=== PATIENT | male | born 1960 | race Caucasian/White ===

== ENCOUNTER 2022-10-10 04:01 | Day surgery (SDC) | payer OTHER ==
[2022-10-08 13:52] VITALS: BMI 32.5
[2022-10-10 06:34] VITALS: RESP 18
[2022-10-10] MEDS ORDERED: PROPOFOL 20 ML ONE (07:10)
[2022-10-10] MEDS ORDERED: LIDOCAINE HCL/PF 2% SDV 5ML VIAL ONE (07:10)
[2022-10-10] MEDS ORDERED: MIDAZOLAM HCL 2 MG/2 ML SINGLE DOSE VIAL ONE ×2 (07:10→08:18)
[2022-10-10] MEDS ORDERED: LIDOCAINE HCL 1%, 10 MG/ML (20ML VIAL) ONE (07:36)
[2022-10-10] MEDS ORDERED: BUPIVACAINE HCL/PF 0.5% (5MG/ML) 10 ML VIAL ONE (08:16)
[2022-10-10] MEDS ORDERED: KETOROLAC TROMETHAMINE 30 MG/1 ML VIAL ONE (08:23)
[2022-10-10] MEDS ORDERED: ONDANSETRON 4 MG/2 ML VIAL ONE (08:23)
[2022-10-10] MEDS ORDERED: DEXAMETHASONE SOD PHOSPHATE 4 MG/1 ML VIAL ONE (08:23)
[2022-10-10] MEDS ORDERED: LACTATED RINGERS SOLUTION 1,000 ML IV SCH (09:30)
[2022-10-10 09:36] VITALS: TEMP 97.1
[2022-10-10 09:46] VITALS: BP 123/77; PULSE 74
== END 2022-10-10 10:15 | disposition home or self-care (01) ==
LOC: JASU-SURG 04:01
PROVIDERS: ATTEND Surgery
PROC: 0JBF0ZZ Excision of Left Upper Arm Subcutaneous Tissue and Fascia, Open Approach (ICD-10-PCS; principal; 2022-10-10 08:00)
DX: D21.12 Benign neoplasm of connective and other soft tissue of left upper limb, including shoulder (principal)
CPT/HCPCS: 88305-TC